=== PATIENT | male | born 1985 | race Hispanic/Latino ===

== ENCOUNTER 2020-06-16 02:48 | Emergency (ER) | payer OTHER ==
[~2020-06-16] VITALS: Ht 172.7 cm; Wt 88.9 kg
[2020-06-16] MEDS ORDERED: KETOROLAC TROMETHAMINE 30 MG/ML VIAL IV STA (03:06)
[2020-06-16] MEDS ORDERED: ONDANSETRON HCL INJ 2MG/ML 2ML 2 MG/ML VIAL IV STA (03:06)
[2020-06-16] MEDS ORDERED: DICYCLOMINE HCL 20 MG/2 ML VIAL IM ONE ×2 (03:15→03:24)
[2020-06-16] MEDS ORDERED: ONDANSETRON HCL INJ 2MG/ML 2ML 2 MG/ML VIAL ONE (03:23)
[2020-06-16] MEDS ORDERED: KETOROLAC TROMETHAMINE 30 MG/ML VIAL ONE (03:24)
--- NOTE | 2020-06-16 04:15 | Diagnostic Imaging Report ---
EXAM: CT Abdomen and Pelvis WITHOUT contrast INDICATION: Bloating, discomfort, diarrhea COMPARISON: None. TECHNIQUE: Abdomen and pelvis were scanned utilizing a multidetector helical scanner from the lung base to the pubic symphysis without administration of IV contrast. Absence of intravenous contrast decreases sensitivity for detection of focal lesions and vascular pathology. Coronal and sagittal reformations were obtained. Routine protocol was performed. IV CONTRAST: None ORAL CONTRAST: None COMPLICATIONS: None RADIATION DOSE: Total DLP: 787 mGy*cm Estimated effective dose: (DLP x 0.015 x size factor) mSv CTDIvol has been reviewed. It is below the limits set by the Radiation Protocol Committee (RPC). Dose modulation, iterative reconstruction, and/or weight based adjustment of the mA/kV was utilized to reduce the radiation dose to as low as reasonably achievable. FINDINGS: LINES and TUBES: None. LOWER THORAX: Unremarkable HEPATOBILIARY: No focal hepatic lesions. No biliary ductal dilation. GALLBLADDER: No radio-opaque stones or sludge. No wall thickening. SPLEEN: No splenomegaly. PANCREAS: No focal masses or ductal dilatation. ADRENALS: No adrenal nodules KIDNEYS/URETERS: No hydronephrosis. No cystic or solid mass lesions. No stones. GI TRACT: The stomach is distended, mostly with fluid. Several fluid-filled dilated loops of small bowel with gradual transition point in the right lower quadrant No abnormal distention, wall thickening, or evidence of bowel obstruction. Appendix is normal. PELVIC ORGANS/BLADDER: Unremarkable. LYMPH NODES: No lymphadenopathy. VESSELS: Unremarkable. PERITONEUM / RETROPERITONEUM: No free air or fluid. BONES: Unremarkable. SOFT TISSUES: Unremarkable. IMPRESSION: Fluid distention of the stomach and dilated fluid-filled loops of small bowel with gradual transition point in the right lower quadrant, gastroenteritis is suspected in light of symptoms, although low-grade bowel obstruction is also a consideration. Stool in the colon and rectum Signed by: Moses Darby DO on 06/16/2020 4:12 AM
--- NOTE | 2020-06-16 04:34 | Emergency Department Note ---
History of Present Illnes History of Present Illness Chief Complaint: Abdominal Complaints History of Present Illness This is a 35 year old male Chief Complaint Comment PT C/O DI SCOMFORT/PAIN TO LOWER ABD AREA, STATES ITS BEEN PRESENT FOR ABOUT 2 DAYS NOW, LAST 12 HOURS HAVE GOTTEN PROGRESSIVELY WORSE, LAST NORMAL BM WAS 2 DAYS AGO, YESTERDAY HAD ONE EPISODE OF LOTS OF DIARRHEA AND A SECOND EPISODE OF VERY LITTLE DIARRHEA. DENIES PASSING ANY GAS FOR AT LEAST A DAY THAT HE CAN RECALL . Historian: Patient Arrival Mode: Car Onset (how long ago): day(s) (1) Location: periumbilical Quality: cramping Radiation: Reports non-radiation Severity: moderate Onset quality: gradual Duration (how long): day(s) (1) Timing of current episode: intermittent Progression: waxing and waning Chronicity: new Context: Denies recent illness, Denies recent surgery, Denies recent immobilization, Denies recent travel, Denies trauma/injury, Denies new medications, Denies hx of DVT/PE, Denies non-compliance w/ medications, Denies other Relieving factors: none Exacerbating factors: none Associated symptoms: Denies denies other symptoms, Denies confusion, Denies chest pain, Denies cough, Denies diaphoresis, Denies fever/chills, Denies headaches, Denies loss of appetite, Denies malaise, Denies nausea/vomiting, Denies rash, Denies seizure, Denies shortness of breath, Denies syncope, Denies weakness, Denies other Treatments prior to arrival: none Past Medical/Family History Physician Review I have reviewed the patient's past medical and family history. Any updates have been documented here. Past Medical History Recent Fever: No Clinical Suspicion of Infectio: No New/Unexplained Change in Ment: No Past Medical History: Hyperlipedemia Past Surgical History: None Social History Smoking Cessation: Never Smoker Counseling Performed: No Alcohol Use: None Any Illegal Drug Use: No Physically hurt or threatened: No Other Any Pre-Existing Lines (PICC,: No Review of Systems Review of Systems Constitutional: Reports no symptoms EENTM: Reports no symptoms Cardiovascular: Reports no symptoms Respiratory: Reports no symptoms Gastrointestinal: Reports as per HPI Genitourinary: Reports no symptoms Musculoskeletal: Reports no symptoms Integumentary: Reports no symptoms Neurological: Reports no symptoms Psychological: Reports no symptoms Endocrine: Reports no symptoms Hematological/Lymphatic: Reports no symptoms Physical Exam Related Data Allergies: Coded Allergies: prednisone (Verified Allergy, Unknown, 06/16/20) Triage Vital Signs Vital Signs Date Time Temp Pulse Resp B/P (MAP) Pulse Ox O2 Delivery O2 Flow Rate FiO2 06/16/20 02:58 98.6 73 18 140/64 98 Room Air Vital signs reviewed: Yes Physical Exam CONSTITUTIONAL Constitutional: Present well-developed, Present well-nourished HENT HENT: Present normocephalic, Present atraumatic, Present oropharynx clear/moist, Present nose normal HENT L/R: Present left ext ear normal, Present right ext ear normal EYES Eyes: Reports PERRL, Reports conjunctivae normal NECK Neck: Present ROM normal PULMONARY Pulmonary: Present effort normal, Present breath sounds normal CARDIOVASCULAR Cardiovascular: Present regular rhythm, Present heart sounds normal, Present capillary refill normal, Present normal rate GASTROINTESTINAL Abdominal: Present soft, Present bowel sounds normal, Present tender (priumbilical) GENITOURINARY Genitourinary: Present exam deferred SKIN Skin: Present warm, Present dry MUSCULOSKELETAL Musculoskeletal: Present ROM normal NEUROLOGICAL Neurological: Present alert, Present oriented x 3, Present no gross motor or sensory deficits PSYCHOLOGICAL Psychological: Present mood/affect normal, Present judgement normal Results Laboratory Lab results reviewed: Yes Imaging Imaging results reviewed: Yes Assessment & Plan Medical Decision Making MDM appendicitis ostruction Reassessment Reassessment resolved Assessment & Plan Final Impression: (1) Abdominal pain Depart Disposition: HOME, SELF-CARE Last Vital Signs Date Time Temp Pulse Resp B/P (MAP) Pulse Ox O2 Delivery O2 Flow Rate FiO2 06/16/20 02:58 98.6 73 18 140/64 98 Room Air Medications in the ED Ketorolac Tromethamine 15 mg ONCE STAT IV Last administered on 06/16/20at 03:20; Admin Dose 15 MG; Start 06/16/20 at 03:06; Stop 06/16/20 at 03:07; Status UNV Ondansetron HCl 4 mg NOW STAT IV Last administered on 06/16/20at 03:20; Admin Dose 4 MG; Start 06/16/20 at 03:06; Stop 06/16/20 at 03:07; Status UNV Dicyclomine HCl 20 mg ONCE ONCE IM Last administered on 06/16/20at 03:20; Admin Dose 20 MG; Start 06/16/20 at 03:15; Stop 06/16/20 at 03:16; Status DC Dicyclomine HCl 20 mg STK-MED ONCE IM ; Start 06/16/20 at 03:24; Stop 06/16/20 at 03:19; Status DC JÚNIOR SMITH MD Jun 16, 2020 04:34
[2020-06-16 06:20] LABS: BASOPHILS % 0.3 % (0.0-1.0); EOSINOPHILS % 0.3 % (0.0-6.0); HEMATOCRIT 46.3 % (38.2-49.6); HEMOGLOBIN 15.3 g/dL (14.0-18.0); LYMPHOCYTES # (AUTO) 1.7 (1.0-3.2); LYMPHOCYTES % 16.8 % (18.0-39.1); MEAN CORPUSCULAR HEMOGLOBIN 30.9 pg (28-32); MEAN CORPUSCULAR VOLUME 93.5 fL (81-99); MONOCYTES # (AUTO) 0.8 (0.2-0.8); MONOCYTES % 8.1 % (4.4-11.3); NEUTROPHILS # (AUTO) 7.3 (2.1-6.9); NEUTROPHILS % 74.3 % (38.7-80.0); PLATELET COUNT 162 x10e3/uL (140-360); RED BLOOD COUNT 4.95 x10e6/uL (4.3-5.7); RED CELL DISTRIBUTION WIDTH 13.5 % (11.7-14.4)
== END 2020-06-16 04:50 | disposition home or self-care (01) ==
LOC: FSED 03:10
DX: R10.33 Periumbilical pain (principal); R19.7 Diarrhea, unspecified; E78.5 Hyperlipidemia, unspecified
CPT/HCPCS: 36415; 74176; 80048; 80076; 81003; 85025; 99283; J0500; J1885; J2405

== ENCOUNTER 2020-06-16 13:58 | Emergency (ER) | payer OTHER ==
[~2020-06-16] VITALS: Ht 172.7 cm; Wt 88.9 kg
--- NOTE | 2020-06-16 15:13 | Diagnostic Imaging Report ---
Exam: Head CT without contrast History: Trauma, fall Comparison studies: None Technique: Axial images were obtained from the skull base to the vertex. Coronal and sagittal images reconstructed from the axial data. Dose modulation, iterative reconstruction, and/or weight based adjustment of the mA/kV was utilized to reduce the radiation dose to as low as reasonably achievable. Radiation dose: Total DLP: 969.14 mGy*cm. Estimated effective dose: DLP x 0.015 Intravenous contrast: None Findings: Scalp: No abnormalities. Bones: No fractures, blastic or lytic lesions. Brain sulci: Appropriate for age. Ventricles: Mild asymmetry of the lateral ventricles which are also mildly dilated. The right lateral ventricle is slightly larger than the left and there is deviation of the septum pellucidum to the left of midline. Findings raise the possibility for congenital right lateral intraventricular arachnoid cyst with mass effect on the foramen of Monro which has resulted in chr compensated lateral ventricular hydrocephalus. Moreover, there is no transependymal flow CSF to indicate acute hydrocephalus. The third and fourth ventricles are normal in size. Extra-axial spaces: No masses, no fluid collection. Parenchyma: No abnormal densities. No masses, hemorrhage, acute or chronic vascular insults. Sellar/suprasellar region: No abnormalities. Craniocervical junction: Patent foramen magnum. No Chiari one malformation. Included paranasal sinuses: Clear. Middle ear mastoid cavities: Clear. IMPRESSION: 1. No acute abnormalities. 2. Incidental mild ventriculomegaly with asymmetry of the lateral ventricles as described. No acute hydrocephalus. Signed by: Dr. Mike Cano M.D. on 06/16/2020 3:09 PM
--- NOTE | 2020-06-16 15:22 | Emergency Department Note ---
History of Present Illnes History of Present Illness Chief Complaint: Head/Face Trauma History of Present Illness This is a 35 year old male Chief Complaint Comment PT STATED HE WAS HERE AROUND 0300 THIS MORNING AND WAS DIAGNOSED WITH GASTRITIS AND SENT HOME PT STATED HE HAS NOT EATEN IN 2 DAYS AND GOT UP TO EAT AND PASSED OUT, PT IS NOT SURE IF HE LOST CONSCIOUSNESS, PT STATED HE FELL ON TILE AND HAS A TENDER PLACE ON THE BACK OF HIS HEAD, PT DENIES PAIN, NAUSEA, BLURRED VISION, HEADACHE. PT STATED HE HAS NO SYMPTOMS. . Historian: Patient Arrival Mode: Car Onset (how long ago): day(s) (1) Location: HEAD Quality: DULL Radiation: Denies non-radiation, Denies back, Denies neck, Denies extremity, Denies abdomen, Denies periumbilical, Denies flank, Denies proximal, Denies distal, Denies other Severity: moderate Onset quality: sudden Duration (how long): day(s) (1) Timing of current episode: constant Progression: unchanged Chronicity: new Context: Denies recent illness, Denies recent surgery, Denies recent immobilization, Denies recent travel, Denies trauma/injury, Denies new medications, Denies hx of DVT/PE, Denies non-compliance w/ medications, Denies other Relieving factors: none Exacerbating factors: none Associated symptoms: Reports headaches; Denies denies other symptoms, Denies confusion, Denies chest pain, Denies cough, Denies diaphoresis, Denies fever/chills, Denies loss of appetite, Denies malaise, Denies nausea/vomiting, Denies rash, Denies seizure, Denies shortness of breath, Denies syncope, Denies weakness, Denies other Treatments prior to arrival: none Past Medical/Family History Physician Review I have reviewed the patient's past medical and family history. Any updates have been documented here. Past Medical History Recent Fever: No Clinical Suspicion of Infectio: No New/Unexplained Change in Ment: No Past Medical History: None, Hyperlipedemia Past Surgical History: None Social History Smoking Cessation: Never Smoker Counseling Performed: No Alcohol Use: None Any Illegal Drug Use: No Other Any Pre-Existing Lines (PICC,: No Review of Systems Review of Systems Constitutional: Reports no symptoms EENTM: Reports no symptoms Cardiovascular: Reports no symptoms Respiratory: Reports no symptoms Gastrointestinal: Reports no symptoms Genitourinary: Reports no symptoms Musculoskeletal: Reports no symptoms Integumentary: Reports no symptoms Neurological: Reports as per HPI Psychological: Reports no symptoms Endocrine: Reports no symptoms Hematological/Lymphatic: Reports no symptoms Physical Exam Related Data Allergies: Coded Allergies: prednisone (Verified Allergy, Unknown, 06/16/20) Triage Vital Signs Vital Signs Date Time Temp Pulse Resp B/P (MAP) Pulse Ox O2 Delivery O2 Flow Rate FiO2 06/16/20 14:01 98.4 75 16 129/62 100 Room Air Vital signs reviewed: Yes Physical Exam CONSTITUTIONAL Constitutional: Present well-developed, Present well-nourished HENT HENT: Present normocephalic, Present oropharynx clear/moist, Present nose normal, Present other (TENDERNESS OCCIPITAL AREA) HENT L/R: Present left ext ear normal, Present right ext ear normal EYES Eyes: Reports PERRL, Reports conjunctivae normal NECK Neck: Present ROM normal PULMONARY Pulmonary: Present effort normal, Present breath sounds normal CARDIOVASCULAR Cardiovascular: Present regular rhythm, Present heart sounds normal, Present capillary refill normal, Present normal rate GASTROINTESTINAL Abdominal: Present soft, Present nontender, Present bowel sounds normal GENITOURINARY Genitourinary: Present exam deferred SKIN Skin: Present warm, Present dry MUSCULOSKELETAL Musculoskeletal: Present ROM normal NEUROLOGICAL Neurological: Present alert, Present oriented x 3, Present no gross motor or sensory deficits PSYCHOLOGICAL Psychological: Present mood/affect normal, Present judgement normal Results Imaging Imaging results reviewed: Yes Procedures 12 Lead ECG Interpretation ECG Interpretation : ECG: ECG 1 [employer] Attendants Supervisor: Interpreted by ED physician Date: Jun 16, 2020 Time: 14:48 Prior ECG tracings: reviewed Rhythm: sinus rhythm Rate: normal BPM: 77 QRS axis: normal ST segments normal: Yes T waves normal: Yes Assessment & Plan Medical Decision Making MDM HEAD INJURY BLEED FX Reassessment Reassessment BETTER Assessment & Plan Final Impression: (1) Head injury (2) Acute pain due to trauma Depart Disposition: HOME, SELF-CARE Last Vital Signs Date Time Temp Pulse Resp B/P (MAP) Pulse Ox O2 Delivery O2 Flow Rate FiO2 06/16/20 14:01 98.4 75 16 129/62 100 Room Air JÚNIOR SMITH MD Jun 16, 2020 15:22
--- OUTSIDE RECORDS SUMMARY | 2020-06-18 19:58 | XMS REPORT | Continuity of Care Document ---
Author Author [facility] t Organization [facility] Address [address] [place] [phone] Phone Unavailable Care Team Providers Care Materials Specialist Name Role Phone NONSTAFF PCP Unavailable JÚNIOR SMITH Attphyshelly Unavailable Payers Payer Name Policy Type Policy Number Effective Date Expiration Date Shelly Rivera [facility] [id number] 2019 00:00:00 [facility] Problems Condition Name Condition Details Condition Category Status Onset Date Resolution Date Last Treatment Date Treating Clinician Comments Source Abdominal pain Problem Active [facility] Injury of head Problem Active [facility] Acute pain due to trauma Problem Active [facility] Allergies, Adverse Reactions, Alerts Allergy Name Allergy Type Status Severity Reaction(s) Onset Date Inacti ve Date Treating Clinician Comments Source Prednisone Allergy to substance Active 2020-06-16 00:00:00 [facility] Social History Social Habit Start Date Stop Date Quantity Comments Source Sex Assigned At 1985 00:00:00 1985 00:00:00 Male [facility] Medications This patient has no known medications. Vital Signs Vital Name Observation Time Observation Value Comments Source Weight 2020-06-16 14:01:00 196 [lb_av] [facility] BMI (Body Mass Index) 2020-06-16 14:01:00 29.8 kg/m2 [facility] Weight 2020-06-16 02:58:00 196 [lb_av] [facility] BMI (Body Mass Index) 2020-06-16 02:58:00 29.8 kg/m2 [facility] Procedures This patient has no known procedures. Plan of Care Planned Activity Planned Date Details Comments Source Instructions Contusion [facility] Encounters Start Date/Time End Date/Time Encounter Type Admission Type Att[facility] Facility Care Department Encounter ID Source 2020-06-16 14:20:00 2020-06-16 15:23:00 Departed Emergency Room [facility] [id number] [facility] 2020-06-16 03:10:00 2020-06-16 04:50:00 Departed Emergency Room 1 [facility] [id number] [facility] Results Test Description Test Time Test Comments Results Result Comments Source CT BRAIN [facility] 2020-06-16 14:56:00 [facility] [address] [address] Patient Name: KAVITA CALHOUN MR #: [id number] : 1985 Age/Sex: 35/M Req #: [id number] Adm Physician: Ordered by: JÚNIOR SMIHT MD Report #: [id number] Location: FS Room/Bed: Procedure: [id number] HOPD/CT BRAIN WO-HOPD Exam Date: 06/16/20 Exam Time: 1445 REPORT STATUS: Signed Exam: Head CT without contrast History: Trauma, fall Comparison studies: None Technique: Axial images were obtained from the skull base to the vertex. Coronal and sagittal images reconstructed from the axial data. Dose modulation, iterative reconstruction, and/or weight based adjustment of the mA/kV was utilized to reduce the radiation dose to as low as reasonably achievable. Radiation dose: Total DLP: 969.14 mGy*cm. Estimated effective dose: DLP x 0.015 Intravenous contrast: None Findings: Scalp: No abnormalities. Bones: No fractures, blastic or lytic lesions. Brain sulci: Appropriate for age. Ventricles: Mild asymmetry of the lateral ventricles which are also mildly dilated. The right lateral ventricle is slightly larger than the left and there is deviation of the septum pellucidum to the left of midline. Findings raise the possibility for congenital right lateral intraventricular arachnoid cyst with mass effect on the foramen of Monro which has resulted in chr compensated lateral ventricular hydrocephalus. Moreover, there is no transependymal flow CSF to indicate acute hydrocephalus. The third and fourth ventricles are normal in size. Extra-axial spaces: No masses, no fluid collection. Parenchyma: No abnormal densities. No masses, hemorrhage, acute or chronic vascular insults. Sellar/suprasellar region: No abnormalities. Craniocervical junction: Patent foramen magnum. No Chiari one malformation. Included paranasal sinuses: Clear. Middle ear mastoid cavities: Clear. IMPRESSION: 1. No acute abnormalities. 2. Incidental mild ventriculomegaly with asymmetry of the lateral ventricles as described. No acute hydrocephalus. Signed by: Dr. Sami Cano M.D. on 06/16/2020 3:09 PM Dictated By: SAMI CANO MD 150 Transcribed By: DAVID on 06/16/20 1509 COPY TO: JÚNIOR SMITH MD Blood leukocytes automated count (number/volume) 2020-06-16 05:15:00 Test Item White Blood Count (test code = 6690-2) 9.83 4.8-10.8 [facility] (number/volume)2020-06-16 05:15:00* Test Item Value Reference Range Interpretation Comments Red Blood Count (test code = 789-8) 4.95 4.3-5.7 [facility] measurement (moles/volume)2020-06-16 05:15:00* Test Item Value Reference Range Interpretation Comments Hemoglobin (test code = 59051-3) 15.3 14.0-18.0 [facility] hematocrit (volume fraction)2020-06-16 05:15:00* Test Item Value Reference Range Interpretation Comments Hematocrit (test code = 4544-3) 46.3 38.2-49.6 [facility] erythrocyte mean corpuscular uwpcfo8404-07-83 05:15:00* Test Item Value Reference Range Interpretation Comments Mean Corpuscular Volume (test code = 787-2) 93.5 81-99 [facility] mean corpuscular hemoglobin (mass per erythrocyte)2020-06-16 05:15:00* Test Item Value Reference Range Interpretation Comments Mean Corpuscular Hemoglobin (test code = 785-6) 30.9 28-32 [facility] eryth[facility] mean corpuscular hemoglobin concentration measurement (mass/volume)2020-06-16 05:15:00* Test Item Value Reference Range Interpretation Comments Mean Corpuscular Hemoglobin Concent (test code = 786-4) 33.0 31-35 [facility] NorthwestRDW CypKp-Fqy0734-12-29 05:15:00* Test Item Value Reference Range Interpretation Comments Red Cell Distribution Width (test code = 56065-5) 13.5 11.7 -14.4 [facility] platelet count (count/volume)2020-06-16 05:15:00* Test Item Value Reference Range Interpretation Comments Platelet Count (test code = 777-3) 162 140-360 [facility] segmented neutrophil count as percentage of total qpccorktmb3148-71-47 05:15:00* Test Item Value Reference Range Interpretation Comments Neutrophils (%) (Auto) (test code = 77669-8) 74.3 38.7-80.0 [facility] Northwest[facility] lymphocyte count as percentage ot total ghappkjtuf0866-26-96 05:15:00* Test Item Value Reference Range Interpretation Comments Lymphocytes (%) (Auto) (test code = 736-9) 16.8 18.0-39.1 [facility] Northwest[facility] monocyte count as percentage of total ldyycqygid9155-49-76 05:15:00* Test Item Value Reference Range Interpretation Comments Monocytes (%) (Auto) (test code = 5905-5) 8.1 4.4-11.3 [facility] eosinophil count as percentage of total kitfjfylpf8817-69-25 05:15:00* Test Item Value Reference Range Interpretation Comments Eosinophils (%) (Auto) (test code = 713-8) 0.3 0.0-6.0 [facility] basophil count as percentage of total ayqamqxdrw2610-06-43 05:15:00* Test Item Value Reference Range Interpretation Comments Basophils (%) (Auto) (test code = 706-2) 0.3 0.0-1.0 [facility] NorthwestFluoroscopic procedure less than one hour ncisqbmj3871-05-74 05:15:00* Test Item Value Reference Range Interpretation Comments IM GRANULOCYTES % (test code = IM GRANULOCYTES %) 0.2 0.0- 1.0 [facility] neutrophil count 2020-06-16 05:15:00* Test Item Value Reference Range Interpretation Comments Neutrophils # (Auto) (test code = 751-8) 7.3 2.1-6.9 [facility] lymphocytes count (number/volume) 2020-06-16 05:15:00* Test Item Value Reference Range Interpretation Comments Lymphocytes # (Auto) (test code = 66170-3) 1.7 1.0-3.2 [facility] NorthwestBlood monocytes automated count (number/volume)2020-06-16 05:15:00* Test Item Value Reference Range Interpretation Comments Monocytes # (Auto) (test code = 742-7) 0.8 0.2-0.8 [facility] Northwest[facility] eosinophil count 2020-06-16 05:15:00* Test Item Value Reference Range Interpretation Comments Eosinophils # (Auto) (test code = 711-2) 0.0 0.0-0.4 [facility] blood basophil count (count/volume)2020-06-16 05:15:00* Test Item Value Reference Range Interpretation Comments Basophils # (Auto) (test code = 704-7) 0.0 0.0-0.1 [facility] NorthwestFluoroscopic procedure less than one hour ptspdpgi0360-02-45 05:15:00* Test Item Value Reference Range Interpretation Comments Absolute Immature Granulocyte (auto (kingsley t code = Absolute Immature Granulocyte (auto) 0.02 0-0.1 [facility] NorthwestCT A[facility]/PEL WO [id number]-[id number] 04:06:00 [facility] [address] [address] Patient Name: KAVITA CALHOUN MR #: [id number] : 1985 Age/Sex: 35/M Req #: [id number] Adm Physician: Ordered by: JÚNIOR SMITH MD Report #: [id number] Location: [facility] Room/Bed: Procedure: [id number] HOPD/CT ABD/PE L WO CONTRAST-HOPD Exam Date: 06/16/20 Exam Time: 02 15 REPORT STATUS: Signed EXAM: C T Abdomen and Pelvis WITHOUT contrast INDICATION: Bloating, discomfort, diar polly COMPARISON: None. TECHNIQUE: Abdomen and pelvis were scanned utili ENOVIXng a multidetector helical scanner from the lung base to the pubic symphysis without administration of IV contrast. Absence of intravenous contrast decrea ses sensitivity for detection of focal lesions and vascular pathology. Coronal and sagittal reformations were obtained. Routine protocol was performed. IV CONTRAST: None ORAL CONTRAST: None COMPLICATIONS: None RADIATION DOSE: Total DLP: 787 mGy*cm Estimated effecti ve dose: (DLP x 0.015 x size factor) mSv CTDIvol has been reviewed. It is below the limits set by the Radiation Protocol Committee (RPC). Dose m odulation, iterative reconstruction, and/or weight based adjustment of the mA/ kV was utilized to reduce the radiation dose to as low as reasonably achievabl e. FINDINGS: LINES and TUBES: None. LOWER THORAX: Unremarkable HEPATOBILIARY: No focal hepatic lesions. No biliary ductal dilation. GALLBLADDER: No radio-opaque stones or sludge. No wall thickening. SP AUGUST: No splenomegaly. PANCREAS: No focal masses or ductal dilatation. ADRENALS: No adrenal nodules KIDNEYS/URETERS: No hydronephrosis. N o cystic or solid mass lesions. No stones. GI TRACT: The stomach is dist ended, mostly with fluid. Several fluid-filled dilated loops of small bowel wi th gradual transition point in the right lower quadrant No abnormal distention , wall thickening, or evidence of bowel obstruction. Appendix is normal. PELVIC ORGANS/BLADDER: Unremarkable. LYMPH NODES: No lymphadenopathy. VESSELS: Unremarkable. PERITONEUM / RETROPERITONEUM: No free air or f luid. BONES: Unremarkable. SOFT TISSUES: Unremarkable. IMPRESSION: Fluid distention of the stomach and dilated fluid-filled loo ps of small bowel with gradual transition point in the right lower quadrant, g astroenteritis is suspected in light of symptoms, although low-grade bowel obs truction is also a consideration. Stool in the colon and rectum Signed by : Moses Darby DO on 06/16/2020 4:12 AM Dictated By: MOSES Boone 1 Transcribed B y: DAVID on 06/16/20411 COPY TO: JÚNIOR SMITH MD
== END 2020-06-16 15:23 | disposition home or self-care (01) ==
LOC: FSED 14:20
DX: G89.11 Acute pain due to trauma (principal); S00.83XA Contusion of other part of head, initial encounter; W01.0XXA Fall on same level from slipping, tripping and stumbling without subsequent striking against object, initial encounter; Y92.008 Other place in unspecified non-institutional (private) residence as the place of occurrence of the external cause; E78.5 Hyperlipidemia, unspecified
CPT/HCPCS: 70450; 93005; 99283